=== PATIENT | female | born 2000 | race Caucasian/White ===

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

== ENCOUNTER 2021-10-10 19:21 | Emergency (ER) | payer OTHER ==
[~2021-10-10] VITALS: Ht 167.6 cm; Wt 56.8 kg
[2021-10-10] MEDS ORDERED: ANUSOL-HC SUPPO25 MG RC (20:02)
[2021-10-10 20:32] VITALS: BP 148/64; PULSE 72; TEMP 98.1
== END 2021-10-10 20:33 | disposition home or self-care (01) ==
LOC: COL.ER 19:21
DX: K64.4 Residual hemorrhoidal skin tags (principal)

== ENCOUNTER 2021-10-12 05:21 | Day surgery (SDC) | payer OTHER ==
[~2021-10-12] VITALS: Ht 167.6 cm; Wt 57.8 kg
[~2021-10-12 05:21] MED LIST: ANUSOL-HC SUPPO25 MG RC
[2021-10-12] MEDS ORDERED: ADDERALL XR20 MG PO (05:57)
[2021-10-12] MEDS ORDERED: ESTARYLLA 35 MC1 TAB PO (05:58)
[2021-10-12] MEDS ORDERED: DESYREL 50MG50 MG PO (05:58)
[2021-10-12 06:22] VITALS: BP 109/64; PULSE 44; TEMP 97.8
[2021-10-12] MEDS ORDERED: MOTRIN 600600 MG/TAB PO (07:54)
[2021-10-12] MEDS ORDERED: NORCO 325 MG-51 TAB PO (07:54)
[2021-10-12 08:27] VITALS: BP 99/49; PULSE 64
--- NOTE | 2021-10-12 08:27 | NUR ---
Pt to [facility] via cart from [place]. Pt drowsy, arouses to verbal stimuli. VSS. Gauze to rectum is clean, dry, and intact. IVF infusing without diffiuclties. Will continue to monitor. Side rails up x2. Call light within reach.
[2021-10-12 08:45] VITALS: BP 112/51; PULSE 101
--- NOTE | 2021-10-12 08:45 | NUR ---
Pt up to restroom. Voids without difficulties. Gauze removed from rectum. Small amount of bright red blood. Pt back to room. Warm blankets placed on pt. Father in room. Will continue to montior.
[2021-10-12 09:00] VITALS: BP 112/56; PULSE 46
--- NOTE | 2021-10-12 09:00 | NUR ---
Pt continues to rest. Juice and pudding given per pt request. Call light within reach.
[2021-10-12 09:15] VITALS: BP 111/63; PULSE 41
--- NOTE | 2021-10-12 09:15 | NUR ---
Pt continues to rest. Denies pain or nausea. Call light within reach.
[2021-10-12 09:30] VITALS: BP 110/63; PULSE 46
--- NOTE | 2021-10-12 09:30 | NUR ---
Pt continues to rest. Denies needs. Call light within reach.
--- NOTE | 2021-10-12 10:15 | NUR ---
Discharge instructions reviewed with pt and her father. Pt voices understanding. IV site discontinued with all parts intact. Pt up to dress. Call light within reach.
--- NOTE | 2021-10-12 10:20 | NUR ---
Pt escorted to private car via wheel chair. Pt accompanied home by her father.
== END 2021-10-12 10:20 | disposition home or self-care (01) ==
LOC: SDCO 05:21
DX: K64.1 Second degree hemorrhoids (principal); K64.4 Residual hemorrhoidal skin tags; F90.9 Attention-deficit hyperactivity disorder, unspecified type; G47.00 Insomnia, unspecified; Z79.899 Other long term (current) drug therapy
CPT/HCPCS: J0690; J2405; J2704; J3010; J7120